=== PATIENT | male | born 1950 | race Caucasian/White ===

== ENCOUNTER → 2016-07-16 | Outpatient (CLI) | payer OTHER ==
[~2016-07-16] MED LIST: ADVIN25/60 INH; ALBUAER2 INH; MONT1TAB5 PO; OXGN; PRED-301 PO
--- NOTE | 2016-07-16 11:20 | DIAGNOSTIC IMAGING REPORT ---
CHEST CT WITHOUT CONTRAST CT DOSE: 273.89 mGy.cm HISTORY: C34.91 Non-small cell cancer of right [id number] TECHNIQUE: Multiaxial CT images of the chest were performed without contrast. COMPARISON: Chest CT 12/02/2015. FINDINGS: Mild emphysema. No pleural effusions. No pneumothorax. Multiple metallic fiducial markers seen within the right lower lobe. Linear densities and patchy groundglass densities within the right lower lobe predominantly surrounding the fiducial markers has progressed. There is mild motion artifact through this location resulting in suboptimal evaluation. No definite soft tissue nodularity identified at this time. Biapical scarlike densities remain unchanged. Stable 5 mm nodule within the left major fissure on image 91 of 346. Stable 6 mm nodular density within the left lower lobe on image 215. No suspicious lytic or blastic osseous lesions. No mediastinal or hilar lymphadenopathy. Normal caliber thoracic aorta. The heart is normal in size. Limited views of the upper abdomen demonstrate small amount of peripheral calcification at the left hepatic lobe and a normal spleen. The adrenal glands are unremarkable. IMPRESSION: 1. Progressive patchy groundglass densities and linear densities within the right lower lobe predominately surrounding the fiducial markers. This is consistent with a nonspecific pneumonitis and may be due to postradiation change or infectious process. Continued follow-up is recommended to ensure resolution. 2. A few scattered indeterminate pulmonary nodules remain stable. No new nodules identified. 3. Emphysema. Electronically signed by: Raheem Laguna M.D. 07/16/2016 11:18 AM
== END | disposition home or self-care (01) ==
LOC: C.CTS 10:51
PROVIDERS: ATTEND Internal Medicine Pulmonary Disease
DX: C34.91 Malignant neoplasm of unspecified part of right bronchus or lung (principal); J43.9 Emphysema, unspecified

== ENCOUNTER → 2017-01-21 | Outpatient (CLI) | payer OTHER ==
--- NOTE | 2017-01-21 08:41 | DIAGNOSTIC IMAGING REPORT ---
CT OF THE CHEST WITHOUT IV CONTRAST CLINICAL HISTORY: Non-small cell lung cancer. COMPARISON STUDY: Chest CT July 16, 2016. CT DOSE: 229.63 mGy.cm TECHNIQUE: Axial images of the chest were obtained without IV contrast. Images were reviewed in the axial, sagittal, and coronal planes. IV contrast was not administered for this examination. FINDINGS: No enlarged axillary, mediastinal or hilar lymph nodes are present. The size of the heart is normal. There is no pericardial effusion. Central airways are patent with exception of minimal layering debris within the trachea and mainstem bronchi. Fiducial markers within the right lower lobe are noted. Adjacent groundglass opacity similar to prior exam. Minimal tree-in-bud nodules have developed within the left lower lobe since exam of July 16, 2016 and measure 1.7 cm in extent. These are shown image [id number]. A 5 mm. Fissural left upper lobe nodule is unchanged. No pneumothorax or pleural effusion is present. There are no suspicious osseous lesions. There is fatty infiltration of the liver. IMPRESSION: 1. No evidence for recurrent malignancy. 2. No change in mild groundglass opacity adjacent to the fiducial markers within the right lower lobe since prior exam. 3. Interval development of minimal tree-in-bud nodules with the left lower lobe which favors bronchiolitis however this should be assessed on subsequent exams to ensure resolution. Electronically signed by: Rashawn Vargas M.D. 01/21/2017 8:39 AM Dictated Date/Time: 01/21/2017 7:51 AM
== END | disposition home or self-care (01) ==
LOC: C.CTS 06:43
PROVIDERS: ATTEND Internal Medicine Pulmonary Disease
DX: C34.91 Malignant neoplasm of unspecified part of right bronchus or lung (principal)

== ENCOUNTER → 2017-08-05 | Outpatient (CLI) | payer OTHER ==
--- NOTE | 2017-08-05 09:54 | DIAGNOSTIC IMAGING REPORT ---
CT SCAN OF THE CHEST WITHOUT IV CONTRAST CLINICAL HISTORY: Lung cancer follow-up. COMPARISON STUDY: Chest CT scans dated 01/21/2017 and 09/29/2014. TECHNIQUE: CT scan of the thorax was performed from the thoracic inlet to the upper abdomen. Images are reviewed in the axial, sagittal, and coronal planes. IV contrast was not administered for this examination as per the referring clinician. A dose lowering technique was utilized adhering to the principles of ALARA. CT DOSE: 253.09 mGy.cm FINDINGS: Thyroid: Imaged portions of the thyroid gland are normal in size and heterogeneous in attenuation. Thoracic aorta: There is atherosclerotic calcification of the thoracic aorta, which is normal in caliber and demonstrates 4-vessel variant arch anatomy. Heart: The heart is mildly enlarged and without pericardial effusion. The coronary arteries are densely calcified. Lungs and pleural spaces: Emphysema is identified. The trachea is clear. Secretions are present within the mainstem bronchi. Fiducials and groundglass change/scarring are present in the right lower lobe. There is a 7 mm nodular density in the right lower lobe on image #223 that was not present previously. There are irregular nodular airspace opacities in the right upper lobe measuring up to 8 mm (image #126). These are likely on an inflammatory basis. Scattered calcified granulomas are similar to previous. No airspace consolidation or pleural effusion is identified. A fat-containing Bochdalek hernia is noted at the right lung base. Mediastinum: There is no mediastinal lymphadenopathy. Lin: Not well assessed without IV contrast. Axillae: There is no axillary lymphadenopathy. Upper abdomen: The liver is enlarged and steatotic. Postoperative changes suggested along the anterior margin of the left lobe. There are scattered calcified hepatic granulomas. A tiny hiatal hernia is identified. No adrenal lesion is seen. Skeletal structures: The skeletal structures are osteopenic. No lytic or blastic bony lesions are seen. IMPRESSION: 1. Cardiomegaly and emphysema. 2. Fiducials with surrounding groundglass change/scarring are again seen in the right lower lobe. This is similar to previous. 3. There is a new irregular 7 mm nodular density in the right lower lobe. This is pathologically indeterminant and may be on an inflammatory basis. Attention at follow-up is recommended. 4. Irregular nodular opacities in the right upper lobe are nonspecific and likely on an inflammatory basis. These also be reassessed at follow-up. 5. No mediastinal adenopathy is seen. 6. Secretions are present within the mainstem bronchi bilaterally. Correlate clinically for evidence of aspiration. 7. Additional findings as above. Electronically signed by: Jonatan Chu M.D. 08/05/2017 9:53 AM Dictated Date/Time: 08/05/2017 9:32 AM
== END | disposition home or self-care (01) ==
LOC: C.CTS 09:21
PROVIDERS: ATTEND Internal Medicine Pulmonary Disease
DX: C34.91 Malignant neoplasm of unspecified part of right bronchus or lung (principal); I51.7 Cardiomegaly; J43.9 Emphysema, unspecified